=== PATIENT | male | born 1990 | race American Indian/Alaskan Native ===

== ENCOUNTER 2022-01-14 00:52 | Emergency (ER) | payer MEDICAID ==
[2022-01-14 01:23] VITALS: BP 151/105
[2022-01-14] MEDS ORDERED: HYDROmorphone 1 MG/1 ML INJ IM SCH (08:30)
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
== END 2022-01-14 10:42 | disposition home or self-care (01) ==
LOC: ED 00:52
DX: M79.605 Pain in left leg (principal); M79.604 Pain in right leg; G89.29 Other chronic pain
CPT/HCPCS: 96372; 99282; J1170